=== PATIENT | female | born 2000 | race Two or more races ===

== ENCOUNTER 2020-09-10 16:51 | Outpatient (CLI) | payer OTHER | END 2020-09-10 16:52 | disposition home or self-care (01) | LOC: PPH VACUNA 16:51 | DX: Z23 Encounter for immunization (principal) ==

== ENCOUNTER → 2020-10-01 14:43 | Outpatient (CLI) | payer OTHER | END | disposition home or self-care (01) | LOC: PPH VACUNA 14:43 | DX: Z23 Encounter for immunization (principal) ==